=== PATIENT | male | born 2000 | race Caucasian/White ===

== ENCOUNTER 2023-02-03 14:14 | Emergency (ER) | payer OTHER, SELFPAY ==
[2023-02-03] VITALS (19 sets, daily range): BP systolic 125–152; BP diastolic 73–88; PULSE 75–120; RESP 10–25; TEMP 36.3; O2SAT 99–100
--- NOTE | ~2023-02-03 | CT_ITS ---
EXAMINATION: CT brain wo con DATE: 02/03/2023 15:49 INDICATION: Closed head injury TECHNIQUE: Computed tomography (CT) of the head was performed without intravenous contrast. Sagittal and coronal reconstructions were performed. The mA was adjusted according to patient size. Iterative reconstruction technique was employed. The dose-length product was 605.33 mGy-cm. COMPARISON: None FINDINGS: No fracture. No acute intracranial hemorrhage, acute infarction or abnormal extra axial fluid collect ion. Ventricles are normal and symmetric. Left-sided choroid fissure cyst. No mass/mass effect. The o rbits, paranasal sinuses and mastoid air cells are normal. IMPRESSION: 1. No fracture or acute intracranial process. Reviewed, dictated and finalized at location A.
--- NOTE | ~2023-02-03 | XR_ITS ---
EXAMINATION: XR chest 1V portable DATE: 02/03/2023 14:53 INDICATION: Syncope TECHNIQUE: frontal view of the chest was obtained. COMPARISON: Chest radiograph dated 02/27/2012 FINDINGS: The lungs remain clear with no focal airspace opacities, pulmonary edema, pleural effusion or pneumot horax. The cardiomediastinal silhouette is normal. Visualized bones and soft tissues are unremarkable . IMPRESSION: 1. No acute cardiopulmonary disease. Reviewed, dictated and finalized at location A.
--- NOTE | 2023-02-03 14:23 | ECG_ITS ---
Measurements Intervals [place] Rate: 74 P: 145 IL: 125 QRS: 129 QRSD: 89 T: 142 QT: 343 QTc: 383 Interpretive Statements SINUS RHYTHM ARM LEADS REVERSED Electronically Signed On 02-04-2023 12:55:12 CDT by Diego Lau M.D.
[2023-02-03 14:38] LABS: Basophils Absolute Auto 0.1 K/mm3 (0.0-0.1); Basophils Percent Auto 0.7 % (0.2-1.2); Eosinophils Absolute Auto 0.1 K/mm3 (0-0.3); Hematocrit 41.6 % (42.0-52.0); Hemoglobin 13.7 g/dL (14.0-18.0); Immature Granulocyte Absolute 0.07 K/mm3 (0.00-0.031); Immature Granulocyte Percent A 0.6 % (0-0.5); Lymphocytes Absolute Auto 1.99 K/mm3 (0.9-3.2); Lymphocytes Percent Auto 17.2 % (18.3-44.2); Mean Corpuscular HGB Conc 32.9 g/dl (32-36); Mean Corpuscular Hemoglobin 30.4 pg (26-34); Mean Corpuscular Volume 92.2 fl (80-100); Mean Platelet Volume 10.6 fl (7.4-10.4); Monocytes Absolute Auto 0.6 K/mm3 (0.1-0.6); Monocytes Percent Auto 4.9 % (2.6-8.5); Neutrophils Absolute Auto 8.7 K/mm3 (1.3-6.7); Neutrophils Percent Auto 75.6 % (45.5-73.1); Platelet Count Result 251 k/mm3 (150-375); Red Blood Count 4.51 M/mm3 (4.6-6.20); Red Cell Distribution Width 11.5 % (11.5-14.5); White Blood Count 11.6 K/mm3 (4.5-10.0)
--- NOTE | 2023-02-03 14:40 | ED.SYNCOPE ---
HPI - Syncope General Chief Complaint: Syncope Stated Complaint: syncopal episode and hit head Time Seen by Provider: 02/03/23 14:35 Source: patient Mode of arrival: ambulatory Limitations: no limitations History of Present Illness HPI narrative: Patient is 22 years old white male/transgender to be a female, currently on hormone medication and the spironolactone since November 2021. Patient came with his girlfriend, and Would like to Be Called cat and his girlfriend calling him/ she. Patient was taken a hot shower, was standing for about 5 minutes then lightheadedness work-up on the floor. Possible frontal head injury. Currently denies any pain or any symptoms. Related Data Allergies Allergy/AdvReac Type Severity Reaction Status Date / Time No Known Allergies Allergy Mild Verified 02/03/23 14:32 Exam Narrative: General appearance: Well-developed, well-nourished Skin: Normal color Head: Normocephalic, nontraumatic Eyes: Clear conjunctiva ENT: Oropharynx normal, ears normal, nose normal Neck: Supple, nontender Chest and respiratory: Airway patent, no respiratory distress, no accessory muscle use, gynecomastia Heart: Regular rate/rhythm Abdomen: Soft, nontender, no organomegaly, quiet bowel sounds Vascular: Normal peripheral pulses, normal capillary refill. Musculoskeletal: Normal range of motion, nontender back Neurologic: Alert and oriented ?3, [employer] is normal as tested, no gross motor deficit Course Reevaluation(s) Reevaluation #1: Asymptomatic since arrival to the ED on the third time of discharge Date: 02/03/23 Time: 15:33 Vital Signs Vital signs: Vital Signs Temperature 36.3 C L 02/03/23 14:17 Pulse Rate 93 02/03/23 14:17 Respiratory Rate 16 02/03/23 14:17 Blood Pressure 125/73 02/03/23 14:17 Pulse Oximetry 99 02/03/23 14:17 Oxygen Delivery Room Air 02/03/23 14:17 Temperature 36.3 C L 02/03/23 14:17 Pulse Rate 116 H 02/03/23 15:12 Respiratory Rate 12 02/03/23 15:12 Blood Pressure 141/78 H 02/03/23 15:12 Pulse Oximetry 100 02/03/23 15:12 Oxygen Delivery Room Air 02/03/23 14:17 MDM - Syncope MDM Narrative Medical decision making narrative: 22 years old young male/transgender, and hormone and spironolactone to become a girl, had syncope while taking a shower, his girlfriend telling me that he have quite a bit of stress lately because they are planning to within 1 year and have lack of sleep last night. He denies any chest pain, shortness of breath, headache, nausea, vomiting, back pain or abdominal pain. Had history of blacking out during blood withdrawal. Raises the the suspicious for vasovagal. Physical examination is unremarkable, Differential diagnosis: Vasovagal, anxiety related symptoms, drug induced syncope, drug abuse Work-up today showed WBC of 11.6 normal chemistry, negative alcohol, chest x-ray within normal limit, CT head showed no acute abnormalities The pt was discharged to home.the pt,s condition upon discharge was fair,education was provided to the pt in reference to the final impression,discharge study results,treatment,prognosis and need for follow up . Differential Diagnosis Differential diagnosis: Likely syncope due to orthostatic hypotension, dehydration and other (Vasovagal) Medical Records Attestation: I reviewed the patient's medical records. Lab Data Attestation: I reviewed the patient's lab results. 02/03/23 14:34 02/03/23 14:34 Labs: Lab Results 02/03/23 Range/Units 14:34 WBC 11.6 H (4.5-10.0) K/mm3 RBC 4.51 L (4.6-6.20) M/mm3 Hgb 13.7 L (14.0-18.0) g/dL Hct 41.6 L (42.0-52.0) % MCV 92.2 (80-100) fl MCH
[2023-02-03 14:49] LABS: Alanine Aminotransferase 22 U/L (6-50); Albumin Level 4.7 g/dL (3.5-5.1); Alkaline Phosphatase 57 U/L (38-126); Anion Gap 8 mmol/L (8-16); Aspartate Amino Transferase 30 U/L (17-59); Bilirubin,Total 0.5 mg/dL (0.2-1.3); Blood Urea Nitrogen 10 mg/dL (9-20); Calcium 8.8 mg/dL (8.4-10.2); Carbon Dioxide 26 mmol/L (22-30); Chloride 105 mmol/L (98-107); Estimated CRCL calculation 141 ml/min; Estimated Glomerular Filt Rate > 60; Glucose 106 mg/dL (65-110); Potassium 3.6 mmol/L (3.4-5.0); Sodium 139 mmol/L (137-145)
[2023-02-03 15:02] LABS: Ethanol < 10 mg/dL (<10)
== END 2023-02-03 16:19 | disposition home or self-care (01) ==
PROVIDERS: Emergency Medicine; Emergency Provider Emergency Medicine; PCP Pediatrics
DX: R55 Syncope and collapse (principal); Z79.890 Hormone replacement therapy
CPT/HCPCS: 36415; 70450; 71045; 80053; 80307; 85025; 93005; 99284

== ENCOUNTER 2023-11-04 15:43 | Emergency (ER) | payer OTHER, SELFPAY ==
[2023-11-04 15:57] VITALS: BP 127/75; PULSE 81; RESP 16; TEMP 37.2; O2SAT 99
--- NOTE | 2023-11-04 16:34 | ED.GENADULT ---
HPI - General Adult General Chief complaint: Abdominal Pain Stated complaint: pains on sides of stomach Time Seen by Provider: 11/04/23 16:34 Source: patient Mode of arrival: ambulatory Limitations: no limitations History of Present Illness HPI narrative: 23-year-old male transitioning to female patient presents to the [facility] with complaints of intermittent abdominal pain to the flanks that started yesterday. Denies any fevers, body aches or chills. Denies any nausea, vomiting or diarrhea. Patient states that it is very intermittent when the pain occurs pain is very light and not severe. Denies any issues or pain with urination. Patient states last bowel movement was this morning and was normal. Patient is on several hormones while he they are trying to transition from a male to female. Patient states last blood monitoring and labs for this was about 2 months ago and everything was normal. Related Data Allergies Allergy/AdvReac Type Severity Reaction Status Date / Time No Known Allergies Allergy Mild Verified 11/04/23 16:24 Review of Systems Review of Systems: CONSTITUTIONAL: Denies fever, chills, or sweats. EYES: Denies visual changes, redness, or discharge. ENT: Denies rhinorrhea, congestion, sore throat, or otalgia. CARDIOVASCULAR: Denies chest pain, palpitations, or edema. RESPIRATORY: Denies cough or dyspnea. GASTROINTESTINAL: Positive bilateral abdominal pain, denies nausea, vomiting, or diarrhea. GENITOURINARY: Denies dysuria or hematuria. SKIN: Denies rash or itching. MUSCULOSKELETAL: Denies back pain, joint pain, or myalgia. NEUROLOGIC: Denies headache, numbness, or weakness. PSYCHIATRIC: Denies anxiety or depression. PMFSH Past Medical History Medical History [id number] transgender person Comments At the time of my signature I agree with nursing past medical history, surgical, social, and family history. There is no relevant family history pertinent to the presenting complaint. Exam Narrative: GENERAL: Well-appearing, well-nourished, and in no acute distress. HEAD: Normocephalic, atraumatic. EYES: PERRLA and EOMI. ENT: Nares clear, no rhinorrhea or epistaxis. Mucous membranes moist. NECK: Supple. No lymphadenopathy CHEST: Clear to auscultation. No respiratory distress. HEART: Regular rate and rhythm. No murmur heard. Normal peripheral pulses. ABDOMEN: Soft, flat, nondistended. No guarding, rebound tenderness, or rigid. Slight tenderness noted to palpation of the right upper f quadrant, right lower quadrant and left lower quadrant No pulsatilla masses. Hyperactive Bowel sounds present in all four quadrants. No organomegaly. Negative Bagley?s sign. No periumbicial tenderness. No Supra public tenderness or distension. Good femoral pulses bilaterally. No hernia noted. No scars or surface trauma. EXTREMITIES: Normal range of motion. No edema. SKIN: Warm, dry, no rash. NEURO: No focal deficits. Alert and oriented x3. Course Course Level of Care: Express Care Visit Vital Signs Vital signs: Vital Signs Temperature 37.2 C 11/04/23 15:57 Pulse Rate 81 11/04/23 15:57 Respiratory Rate 16 11/04/23 15:57 Blood Pressure 127/75 11/04/23 15:57 Pulse Oximetry 99 11/04/23 15:57 Oxygen Delivery Room Air 11/04/23 15:57 Temperature 37.2 C 11/04/23 15:57 Pulse Rate 81 11/04/23 15:57 Respiratory Rate 16 11/04/23 15:57 Blood Pressure 127/75 11/04/23 15:57 Pulse Oximetry 99 11/04/23 15:57 Oxygen Delivery Room Air 11/04/23 15:57 Vital signs reviewed. Medical Decision Making MDM Narrative Medical decision making narrative: Discussed with patient that I do not think that we need to send him to the emergency department at this time considering his vitals are stable the abdominal pain is very mild and intermittently but I would recommend that he follow-up with his primary doctor to obtain imaging and blood work. Patient states he has an appointment with barb
== END 2023-11-04 17:08 | disposition home or self-care (01) ==
PROVIDERS: Emergency Provider Nurse Practitioner Family
DX: R10.84 Generalized abdominal pain (principal); F64.0 Transsexualism
CPT/HCPCS: 99211; G0463

== ENCOUNTER 2023-11-08 16:47 | Emergency (ER) | payer OTHER, SELFPAY ==
--- NOTE | ~2023-11-08 | CT_ITS ---
CT abdomen pelvis w con Ordering provider: Katya Roblero PA-C History: 23 years Male with . RUQ abd pain . Comparison: None. Technique: CT abdomen and pelvis with IV and without oral contrast. Automated exposure control and it erative reconstruction technique were employed. The dose-length product was 718.89 mGy-cm. 100 ML Omn ipaque 350 was given IV Findings: VISUALIZED LOWER CHEST: Normal. UPPER ABDOMINAL ORGANS: Liver: Normal. Gallbladder: Normal. Spleen: Normal. Stomach/duodenum: Normal. Pancreas: Normal. Adrenals: Normal. Kidneys: Normal. PELVIC ORGANS: The bladder is underfilled. BOWEL AND MESENTERY: Colon: Mild sigmoid diverticulosis without diverticulitis. Fecal material is loaded in the subpleural right side of the colon. Normal appendix. Small Bowel: Normal. No obstruction. Peritoneum/mesentery: No free air or free fluid. No mesenteric lymphadenopathy. RETROPERITONEUM: Normal aorta. No retroperitoneal lymphadenopathy. MUSCULOSKELETAL: Superficial soft tissues: Slightly enlarged inguinal lymph nodes are noted measuring 1.3 cm on the le ft and to CNM on the right. Clinical evaluation advised.Otherwise, The superficial soft tissues are n ormal. Bones: Normal spine. IMPRESSION: 1. No acute abdominal process with no evidence of appendicitis, diverticulitis or intestinal obstruc tion. 2. Constipation. 3. Slightly enlarged inguinal lymph nodes. Clinical correlation advised. Reviewed, dictated and finalized at location A. IMPRESSION: 1. No acute abdominal process with no evidence of appendicitis, diverticulitis or intestinal obstruction. 2. Constipation. 3. Slightly enlarged inguinal lymph nodes. Clinical correlation advised.
[2023-11-08 16:53] VITALS: BP 147/96; PULSE 66; RESP 17; TEMP 36.3; O2SAT 100
--- NOTE | 2023-11-08 16:54 | ED.GIBLEED ---
HPI - GI Bleed General Chief complaint: GI Bleed Stated complaint: side pain, bloody stool Time Seen by Provider: 11/08/23 18:14 Focused HPI: 23-year-old male presents emergency room for evaluation of bright red blood in stool. Patient states he is complaining of lower abdominal pain last week since resolved. This morning he was straining prior to a bowel movement. Noticed bright red blood on the toilet paper and on his stool. No history of hemorrhoids clear denies any fevers. Denies nausea vomiting. GENERAL: Well-appearing, well-nourished, and in no acute distress. HEAD: Normocephalic, atraumatic. CHEST: Clear to auscultation. No respiratory distress. HEART: Regular rate and rhythm. NEURO: Alert and oriented x3. Patient screened in triage and initial orders placed. Additional care and disposition to be based upon diagnostic testing and treatment. Related Data Home Medications Medication Instructions Recorded Confirmed bupropion HCl 300 mg 24 hr tablet, 300 mg PO 11/08/23 extended release estradiol 2 mg tablet 2 mg PO 11/08/23 guanfacine 2 mg tablet,extended 2 mg PO 11/08/23 release 24 hr progesterone micronized 200 mg 200 mg PO 11/08/23 capsule spironolactone 50 mg tablet 50 mg PO 11/08/23 Allergies Allergy/AdvReac Type Severity Reaction Status Date / Time No Known Allergies Allergy Mild Verified 11/08/23 16:48 [facility] Past Medical History Medical History [id number] transgender person Course Vital Signs Vital signs: Vital Signs Temperature 36.3 C L 11/08/23 16:53 Pulse Rate 66 11/08/23 16:53 Respiratory Rate 17 11/08/23 16:53 Blood Pressure 147/96 H 11/08/23 16:53 Pulse Oximetry 100 11/08/23 16:53 Oxygen Delivery Room Air 11/08/23 16:53 Temperature 36.3 C L 11/08/23 16:53 Pulse Rate 70 11/08/23 21:55 Respiratory Rate 16 11/08/23 21:55 Blood Pressure 140/87 11/08/23 21:55 Pulse Oximetry 97 11/08/23 21:55 Oxygen Delivery Room Air 11/08/23 16:53 MDM - GI Bleed Lab Data 11/08/23 18:44 11/08/23 18:44 Labs: Lab Results 11/08/23 Range/Units 18:44 WBC 10.8 H (4.5-10.0) K/mm3 RBC 4.00 L (4.6-6.20) M/mm3 Hgb 12.3 L (14.0-18.0) g/dL Hct 36.1 L (42.0-52.0) % MCV 90.3 (80-100) fl MCH 30.8 (26-34) pg MCHC 34.1 (32-36) g/dl RDW 11.4 L (11.5-14.5) % Plt Count 257 (150-375) k/mm3 MPV 10.7 H (7.4-10.4) fl Immature Gran % (Auto) 0.2 (0-0.5) % Neut % (Auto) 59.8 (45.5-73.1) % Lymph % (Auto) 28.0 (18.3-44.2) % Branch % (Auto) 6.7 (2.6-8.5) % Eos % (Auto) 4.3 (0-4.4) % Baso % (Auto) 1.0 (0.2-1.2) % Lymph # (Auto) 3.03 (0.9-3.2) K/mm3 Branch # (Auto) 0.7 H (0.1-0.6) K/mm3 Eos # (Auto) 0.5 H (0-0.3) K/mm3 Baso # (Auto) 0.1 (0.0-0.1) K/mm3 Abs Immat Gran (auto) 0.02 (0.00-0.031) K/mm3 Absolute Neuts (auto) 6.5 (1.3-6.7) K/mm3 Absolute Nucleated RBC 0.000 (0.0-0.012) K/mm3 Nucleated RBC % 0.0 (0.0-0.2) % PT 13.2 (11.1-14.7) Seconds INR 1.0 APTT 25.9 (22.3-36.8) Seconds Sodium 139 (137-145) mmol/L Potassium 3.9 (3.4-5.0) mmol/L Chloride 104 (98-107) mmol/L Carbon Dioxide 24 (22-30) mmol/L Anion Gap 11 (4-12) mmol/L BUN 10 (9-20) mg/dL Creatinine 0.70 (0.7-1.3) mg/dL Estim Creat Clear Calc 140 ml/min Estimated GFR > 60 (59 - ) Glucose 96 (65-110) mg/dL Calcium 9.0 (8.4-10.2) mg/dL Total Bilirubin 0.4 (0.2-1.3) mg/dL AST 35 (17-59) U/L ALT 47 (6-50) U/L Alkaline Phosphatase 66 (38-126) U/L Total Protein 8.0 (6.3-8.2) g/dL Albumin 4.9 (3.5-5.1) g/dL Lipase 85 (23-300) U/L Urine Color Yellow (Yellow) Urine Appearance Clear (Clear) Urine pH 7.5 (5.0-9.0) Ur Specific [place] 1.024 (1.001-1.035) Urine Protein Negative (Negative) mg/dL Urine Glucose (UA) Negative (Negative) mg/dL Urine Ketones Negative (Negative) mg/dL Ur Blood (Man) Negative (Negative
--- NOTE | 2023-11-08 18:36 | ED.GIBLEED ---
HPI - GI Bleed General Chief complaint: GI Bleed Stated complaint: side pain, bloody stool Time Seen by Provider: 11/08/23 18:14 History of Present Illness HPI Narrative: 23-year-old male to female transgender presents to the emergency department for BRBPR and intermittent right upper quadrant abdominal pain. Patient states today around 1:00 p.m. they had a bowel movement and noticed a large amount of blood when wiping. They did not notice blood in the toilet bowl. States that this has happened in the past but never this much blood. Denies prior history of hemorrhoids. Denies pain with defecation. There also reporting some intermittent right upper quadrant abdominal pain for the past week. States they went to urgent care few days ago and was told it was possibly the gallbladder. Denies known aggravating or alleviating factors including eating. Endorses some nausea but states he they believe this is secondary to stress from work. Denies vomiting. Denies prior abdominal surgeries. Related Data Home Medications Medication Instructions Recorded Confirmed bupropion HCl 300 mg 24 hr tablet, 300 mg PO 11/08/23 extended release estradiol 2 mg tablet 2 mg PO 11/08/23 guanfacine 2 mg tablet,extended 2 mg PO 11/08/23 release 24 hr progesterone micronized 200 mg 200 mg PO 11/08/23 capsule spironolactone 50 mg tablet 50 mg PO 11/08/23 Allergies Allergy/AdvReac Type Severity Reaction Status Date / Time No Known Allergies Allergy Mild Verified 11/08/23 16:48 Review of Systems Review of Systems: All systems reviewed & are unremarkable except as noted in HPI and below PMFSH Past Medical History Medical History [id number] transgender person Exam Narrative: GENERAL: Well-appearing, well-nourished, and in no acute distress. HEAD: Normocephalic, atraumatic. EYES: PERRLA and EOMI. ENT: Nares clear, no rhinorrhea or epistaxis. Mucous membranes moist. NECK: Supple. CHEST: Clear to auscultation. No respiratory distress. HEART: Regular rate and rhythm. No murmur heard. Normal peripheral pulses. ABDOMEN: Normoactive bowel sounds. Abdomen soft with minimal tenderness in the right upper quadrant. Negative Bagley sign. No rebound, guarding or rigidity. Rectal exam chaperoned by Sachin Cruz shows no fissures or hemorrhoids, no hematochezia melena, Hemoccult negative EXTREMITIES: Normal range of motion. No edema. SKIN: Warm, dry, no rash. NEURO: No focal deficits. Alert and oriented x3 Course Vital Signs Vital signs: Vital Signs Temperature 97.3 F L 11/08/23 16:53 Pulse Rate 66 11/08/23 16:53 Respiratory Rate 17 11/08/23 16:53 Blood Pressure 147/96 H 11/08/23 16:53 Pulse Oximetry 100 11/08/23 16:53 Oxygen Delivery Room Air 11/08/23 16:53 Temperature 97.3 F L 11/08/23 16:53 Pulse Rate 66 11/08/23 16:53 Respiratory Rate 17 11/08/23 16:53 Blood Pressure 147/96 H 11/08/23 16:53 Pulse Oximetry 100 11/08/23 16:53 Oxygen Delivery Room Air 11/08/23 16:53 MDM - GI Bleed MDM Narrative Medical decision making narrative: 23-year-old male to female transgender person presents to the emergency department for BRBPR today after noticing blood on the toilet paper and intermittent right upper quadrant abdominal pain for the past week. Vitals stable. Exam significant for the above. Hemoccult is negative. Rectal exam is unremarkable. Abdomen is soft with minimal tenderness in the right upper quadrant. CBC with mild leukocytosis of 10.8, no bands. Hemoglobin is 12.3 with normal MCV, last hemoglobin in December 2022 was 13.7. Chemistries are unremarkable. Notably LFTs are not elevated. Bilirubin is normal. Lipase is normal. Urinalysis is unremarkable. Coags are normal. Lipase is normal. CT abdomen pelvis shows no acute abdominal process. There is constipation and slightly enlarged inguinal lymph nodes. Workup discussed with the patient. Again Hemoccult was ne
[2023-11-08 18:52] LABS: Basophils Absolute Auto 0.1 K/mm3 (0.0-0.1); Eosinophils Absolute Auto 0.5 K/mm3 (0-0.3); Eosinophils Percent Auto 4.3 % (0-4.4); Hematocrit 36.1 % (42.0-52.0); Hemoglobin 12.3 g/dL (14.0-18.0); Immature Granulocyte Absolute 0.02 K/mm3 (0.00-0.031); Immature Granulocyte Percent A 0.2 % (0-0.5); Lymphocytes Absolute Auto 3.03 K/mm3 (0.9-3.2); Mean Corpuscular HGB Conc 34.1 g/dl (32-36); Mean Corpuscular Hemoglobin 30.8 pg (26-34); Mean Corpuscular Volume 90.3 fl (80-100); Mean Platelet Volume 10.7 fl (7.4-10.4); Monocytes Absolute Auto 0.7 K/mm3 (0.1-0.6); Monocytes Percent Auto 6.7 % (2.6-8.5); Neutrophils Absolute Auto 6.5 K/mm3 (1.3-6.7); Neutrophils Percent Auto 59.8 % (45.5-73.1); Platelet Count Result 257 k/mm3 (150-375); Red Cell Distribution Width 11.4 % (11.5-14.5); White Blood Count 10.8 K/mm3 (4.5-10.0)
[2023-11-08 19:03] LABS: Alanine Aminotransferase 47 U/L (6-50); Albumin Level 4.9 g/dL (3.5-5.1); Alkaline Phosphatase 66 U/L (38-126); Anion Gap 11 mmol/L (4-12); Aspartate Amino Transferase 35 U/L (17-59); Bilirubin,Total 0.4 mg/dL (0.2-1.3); Blood Urea Nitrogen 10 mg/dL (9-20); Carbon Dioxide 24 mmol/L (22-30); Chloride 104 mmol/L (98-107); Estimated CRCL calculation 140 ml/min; Estimated Glomerular Filt Rate > 60; Glucose 96 mg/dL (65-110); Lipase 85 U/L (23-300); Potassium 3.9 mmol/L (3.4-5.0); Sodium 139 mmol/L (137-145)
[2023-11-08 19:11] LABS: Partial Thromboplastin Time 25.9 Seconds (22.3-36.8); Prothrombin Time 13.2 Seconds (11.1-14.7)
[2023-11-08 19:23] LABS: Appearance Urine Clear (Clear); Bilirubin Urine Negative (Negative); Blood Urine Negative (Negative); Color Urine Yellow (Yellow); Glucose Urine UA Negative (Negative); Ketones Urine Negative (Negative); Leukocyte Esterase Ur Negative LEU/UL (Negative); Nitrate Urine Negative (Negative); Protein Urine Negative (Negative); Specific Grav Ur 1.024 (1.001-1.035); pH Urine 7.5 (5.0-9.0)
[2023-11-08 19:33] LABS: Add Urine Microscopic? NO
[2023-11-08 21:55] VITALS: BP 140/87; PULSE 70; RESP 16; O2SAT 97
== END 2023-11-08 21:15 | disposition home or self-care (01) ==
PROVIDERS: Emergency Provider Physician Assistant
DX: R10.11 Right upper quadrant pain (principal); K62.5 Hemorrhage of anus and rectum; D64.9 Anemia, unspecified; R59.1 Generalized enlarged lymph nodes; F64.0 Transsexualism; Z79.899 Other long term (current) drug therapy; Z79.890 Hormone replacement therapy
CPT/HCPCS: 36415; 74177; 80053; 81003; 83690; 85025; 85610; 85730; 99284; Q9967